=== PATIENT | female | born 1990 | race American Indian/Alaskan Native ===

== ENCOUNTER 2020-06-10 | Emergency (ER) | payer MEDICARE ==
[2020-06-10 01:14] LABS: Bilirubin,Urine NEG (Negative); Blood,Urine MOD (Negative); Color,Urine Amber (Yellow); Mucus,Urine 3+ /HPF
--- NOTE | 2020-06-10 01:14 | Emergency Department Report ---
<BOOM LOPEZ - Last Filed: 06/10/20 02:28> ED Psych HPI - General Chief Complaint: Psych Stated Complaint: SUICIDAL IDEATIONS Time Seen by Provider: 06/10/20 00:38 Source: patient Mode of arrival: Ambulatory - History of Present Illness Initial Comments: Patient is a 30-year-old female presents emergency room with complaints of suicidal ideations which she states began in February but worsened over the last couple of days. She states that "I just want to kill myself." She states that she has had multiple suicide attempts since February. She has no specific plan currently. She states that 3 people close to her have from [facility]- since February. She denies being in direct contact with them. Patient does not have any symptoms currently. She does not report any chest pain, shortness of breath, nausea, vomiting, diarrhea, fever, cough. She denies any HI. She states that she hears the voices of her loved ones the past away. She states that she last went to a facility at the end of May. She is a non-smoker. She endorses alcohol use. She denies drug use. - Related Data Previous Rx's Medication Instructions Recorded Last Taken Type Sulfamethoxazole/Trimethoprim 1 each PO BID 10 Days #20 tablet 06/10/20 Unknown Rx [Bactrim DS TAB] Allergies Allergy/AdvReac Type Severity Reaction Status Date / Time No Known Allergies Allergy Unverified 03/19/20 17:17 ED Review of Systems Comment: All other systems reviewed and negative ED Past Medical Hx - Past Medical History Previous Medical History?: Yes Hx Psychiatric Treatment: Yes (bipolar, PTSD) - Surgical History Past Surgical History?: No - Social History Smoking Status: Never Smoker Substance Use Type: None - Medications Home Medications: Home Medications Medication Instructions Recorded Confirmed Last Taken Type Sulfamethoxazole/Trimethoprim 1 each PO BID 10 Days #20 tablet 06/10/20 Unknown Rx [Bactrim DS TAB] ED Physical Exam - General Limitations: No Limitations General appearance: alert, in no apparent distress - Head Head exam: Present: atraumatic, normocephalic - Eye Eye exam: Present: normal appearance - ENT ENT exam: Present: mucous membranes moist - Respiratory Respiratory exam: Present: normal lung sounds bilaterally. Absent: respiratory distress, wheezes, rales, rhonchi, stridor, chest wall tenderness, accessory muscle use, decreased breath sounds, prolonged expiratory - Cardiovascular Cardiovascular Exam: Present: regular rate, normal rhythm, normal heart sounds. Absent: systolic murmur, diastolic murmur, rubs, gallop - Neurological Exam Neurological exam: Present: alert, oriented X3 - Psychiatric Psychiatric exam: Present: normal affect, normal mood - Skin Skin exam: Present: warm, dry, intact ED Medical Decision Making - Lab Data Result diagrams: 06/10/20 01:11 06/10/20 01:11 - Medical Decision Making Patient is a 30-year-old female presents emergency room with complaints of suicidal ideations which she states began in February but worsened over the last couple of days. She states that "I just want to kill myself." She states that she has had multiple suicide attempts since February. She has no specific plan currently. She states that 3 people close to her have from [place] [id number] since February. She denies being in direct contact with them. Patient does not have any symptoms currently. She does not report any chest pain, shortness of breath, nausea, vomiting, diarrhea, fever, cough. She denies any HI. She states that she hears the voices of her loved ones the past away. She states that she last went to a facility at the end of May. She is a non-smoker. She endorses alcohol use. She denies drug use. Vitals are normal. No abnormality on physical exam as documented in chart Stat mental health consult ordered, ED hold order placed, medical clearance orders placed And labs with mild hypokalemia, patient given K-Dur Patient signed out to Dr. Fenton, ER attending pending medical clearance ED Disposition Clinical Impression: Suicidal ideations, Hypokalemia UTI (urinary tract infection) Qualifiers: Urinary tract infection type: acute cystitis Hematuria presence: with hematuria Qualified Code(s): N30.01 - Acute cystitis with hematuria Disposition: DC/TX-65 PSY HOSP/PSY UNIT Condition: Stable Prescriptions: Sulfamethoxazole/Trimethoprim [Bactrim DS TAB] 1 each PO BID 10 Days #20 tablet Referrals: PRIMARY CARE, [Primary Care Provider] - 3-5 Days <VIVIEN FENTON III - Last Filed: 06/10/20 04:37> ED Course - Reevaluation(s) Reevaluation #1: Patient is medically cleared. I discussed all results and clinical findings with patient. I discussed plan of care with patient. Patient will remain in the ER as a ER hold. Patient's final disposition will come from our psychiatric team. 06/10/20 04:38 ED Medical Decision Making - Lab Data Result diagrams: 06/10/20 01:11 06/10/20 01:11 ED Disposition Is pt being admited?: No Does the pt Need Aspirin: No Time of Disposition: 04:38 <MARYLOU LARA - Last Filed: 06/10/20 15:47> ED Review of Systems ROS: Stated complaint: SUICIDAL IDEATIONS Other details as noted in HPI ED Course Vital Signs 06/10/20 06/10/20 00:16 10:38 Temperature 98.3 F Pulse Rate 79 83 Respiratory 18 17 Rate Blood Pressure 131/85 Blood Pressure 134/84 [Left] O2 Sat by Pulse 99 Oximetry - Reevaluation(s) Reevaluation #2: 06/10/20 12:15 1013 is recommended by psychiatry. Patient is awake, alert, walking with a steady gait. She has given consent for transfer to [facility] ED Medical Decision Making - Lab Data Result diagrams: 06/10/20 01:11 06/10/20 01:11 Critical care attestation.: If time is entered above; I have spent that time in minutes in the direct care of this critically ill patient, excluding procedure time. ED Disposition Is pt being admited?: No Does the pt Need Aspirin: No
[2020-06-10 01:19] LABS: Amphetamine Screen,Urine PRESUMPTIVE NEGATIVE; Benzodiazepines Screen,Urine PRESUMPTIVE NEGATIVE; Cannabinoid Screen,Urine PRESUMPTIVE NEGATIVE; Cocaine Screen,Urine PRESUMPTIVE NEGATIVE; Methadone Screen,Urine PRESUMPTIVE NEGATIVE; Opiate Screen,Urine PRESUMPTIVE NEGATIVE
[2020-06-10 02:10] LABS: Alanine Aminotransferase 16 units/L (7-56); Albumin 3.9 g/dL (3.9-5); BUN/Creatinine Ratio 15; Blood Urea Nitrogen 12 mg/dL (7-17); Calcium 9.2 mg/dL (8.4-10.2); Hemolysis Index 7
[2020-06-10 02:16] LABS: Basophils % (Auto) 0.2 % (0.0-1.8); Eosinophils # (Auto) 0.2 K/mm3 (0.0-0.4); Hematocrit 33.7 % (30.3-42.9); Hemoglobin 11.4 gm/dl (10.1-14.3); Lymphocytes # (Auto) 1.9 K/mm3 (1.2-5.4); Lymphocytes % (Auto) 18.6 % (13.4-35.0); Mean Corpuscular HGB Conc 34 % (30-34); Mean Corpuscular Volume 93 fl (79-97); Monocytes # (Auto) 1.3 K/mm3 (0.0-0.8); Monocytes % (Auto) 12.9 % (0.0-7.3); Platelet Count 293 K/mm3 (140-440); Red Cell Distribution Width 13.9 % (13.2-15.2)
[2020-06-10] MEDS ORDERED: POTASSIUM CHLORIDE ER 20 MEQ TAB PO ONE (02:16)
[2020-06-10 10:39] VITALS: BP 134/84
== END 2020-06-10 17:16 ==
LOC: ED
DX: E87.6 Hypokalemia (principal); N39.0 Urinary tract infection, site not specified; R45.851 Suicidal ideations; F31.9 Bipolar disorder, unspecified; Z79.899 Other long term (current) drug therapy
CPT/HCPCS: 36415; 80053; 80307; 80320; 81001; 82550; 83735; 84703; 85025; G0480

== ENCOUNTER 2021-08-15 14:40 | Emergency (ER) | payer MEDICARE ==
[2021-08-15] MEDS ORDERED: ALPRAZolam 1 MG TAB PO ONE (17:06)
[2021-08-15] MEDS ORDERED: HALOPERIDOL LACTATE 5 MG/1 ML INJ IM PRN (17:06)
[2021-08-15] MEDS ORDERED: LORazepam 2 MG/ML VIAL IM PRN (17:06)
--- NOTE | 2021-08-15 17:06 | Emergency Department Report ---
ED General Adult HPI - General Chief complaint: Psych Stated complaint: SUCIDIAL PUI?: No Time Seen by Provider: 08/15/21 16:09 Source: patient, RN notes reviewed, old records reviewed Mode of arrival: Ambulatory Limitations: No Limitations - History of Present Illness Initial comments: The patient was evaluated in the emergency department for symptoms described in the history of present illness. He/she was evaluated in the context of the global COVID-19 pandemic, which necessitated consideration that the patient might be at risk for infection with the virus that causes COVID-19. Institutional protocols and algorithms that pertain to the evaluation of patients at risk for COVID-19 are in a state of rapid change based on information released by regulatory bodies including the CDC and federal and state organizations. These policies and algorithms were followed during the patient's care in the emergency department. Please note that these policies, procedures and recommendations changed on a rapid basis. During the history and physical examination, I am chaperoned by nurse Ena Nance The patient is a 31-year-old female, with a history of obesity, and psychiatric disease. The patient presents to the ER today with a complaint of suicidality. The patient reports that a significant other / last month, and she has been seeing hallucinations, hearing their voice, and she states that she wants to overdose and kill herself. She reports that she recently lifted up a knife, and considered cutting herself. However, she states that she has not cut herself. The patient denies headache, neck pain, abdominal pain, intentional overdose, urinary symptoms, and Covid symptoms. The patient has not received her Covid vaccination. On review of systems, the patient endorses reproducible central chest wall pain, present for a few hours, which does not radiate to the back, arms or neck. The patient denies vomiting, diaphoresis, leg pain, leg swelling, travel, surgery, immobilization, DVT and pulmonary embolism risk factors. -: days(s) Severity scale (0 -10): 0 Consistency: constant Improves with: none Worsens with: none - Related Data Home Medications Medication Instructions Recorded Confirmed Last Taken Depakote Dr PO DAILY 08/15/21 Unknown Allergies Allergy/AdvReac Type Severity Reaction Status Date / Time Fish Containing Products Allergy Hives Verified 08/15/21 15:49 ED Review of Systems ROS: Stated complaint: SUCIDIAL Other details as noted in HPI Constitutional: denies: fever Eyes: denies: eye discharge ENT: denies: epistaxis Respiratory: denies: cough Cardiovascular: other (Chest wall pain) Gastrointestinal: denies: abdominal pain Genitourinary: denies: dysuria Neurological: denies: headache Psychiatric: anxiety, depression, auditory hallucinations, suicidal thoughts. denies: homicidal thoughts ED Past Medical Hx - Past Medical History Previous Medical History?: No Hx Psychiatric Treatment: Yes (bipolar, PTSD) - Surgical History Past Surgical History?: No - Social History Smoking Status: Never Smoker Substance Use Type: None - Medications Home Medications: Home Medications Medication Instructions Recorded Confirmed Last Taken Type Depakote Dr PO DAILY 08/15/21 Unknown History ED Physical Exam - General Limitations: No Limitations General appearance: alert, in no apparent distress, obese - Head Head exam: Present: atraumatic, normocephalic - Eye Eye exam: Present: normal appearance, EOMI. Absent: nystagmus - ENT ENT exam: Present: normal exam, normal orophraynx, mucous membranes moist, normal external ear exam - Neck Neck exam: Present: normal inspection, full ROM. Absent: tenderness, meningism us - Respiratory Respiratory exam: Present: normal lung sounds bilaterally, chest wall tenderness. Absent: respiratory distress, wheezes, rales, rhonchi, stridor - Cardiovascular Cardiovascular Exam: Present: regular rate, normal rhythm, normal heart sounds. Absent: bradycardia, tachycardia, irregular rhythm, systolic murmur, diastolic murmur, rubs, gallop - GI/Abdominal GI/Abdominal exam: Present: soft. Absent: distended, tenderness, guarding, rebound, rigid, pulsatile mass - Extremities Exam Extremities exam: Present: normal inspection, full ROM, other (2+ pulses noted in the bilateral upper and lower extremities. There is no palpable cord. negative Homans sign. Muscular compartments are soft. The pelvis is stable.). Absent: pedal edema, calf tenderness - Back Exam Back exam: Present: normal inspection, full ROM. Absent: tenderness, CVA tenderness (R), CVA tenderness (L), paraspinal tenderness, vertebral tenderness - Neurological Exam Neurological exam: Present: alert, oriented X3, other (No facial droop. Tongue midline. Extraocular movements intact bilaterally. Facial sensation intact to light touch in V1, V2, V3 distribution bilaterally. 5 and a 5 strength in 4 extremities. Sensation intact to light touch in 4 extremities.). Absent: motor sensory deficit - Psychiatric Psychiatric exam: Present: suicidal ideation - Skin Skin exam: Present: warm, dry, intact, normal color. Absent: rash ED Course Vital Signs 08/15/21 08/15/21 08/15/21 15:12 15:41 16:29 Temperature 98.7 F 98.6 F Pulse Rate 100 H 80 Respiratory 16 20 Rate Blood Pressure 143/83 146/92 [Right] O2 Sat by Pulse 99 98 98 Oximetry 08/15/21 19:59 Temperature 98.3 F Pulse Rate 98 H Respiratory 18 Rate Blood Pressure 123/80 [Right] O2 Sat by Pulse 99 Oximetry - Reevaluation(s) Reevaluation #1: 08/15/21 17:58 Differential diagnosis, including not limited to: Obesity, depression, dysthymia, suicidality, costochondritis, medical clearance for psychiatric placement Assessment and plan: 81-year-old female who endorses hallucinations, suici dality, wants to harm herself, has considered taking a knife to kill herself, with attempts for self-harm in the past. She meets criteria for 1013 hold or involuntary hold secondary to the aforementioned. Tachycardia resolved, she is not currently tachycardic, tachypneic or hypoxic, she denies DVT and pulmonary embolism risk factors, and she is low risk by Wells criteria for pulmonary embolism. She has reproducible chest wall pain, low risk for major adverse cardiac event as per heart score. Chest x-ray pending, remainder of laboratory studies pending, holding orders initiated, explained significance of 1013 to patient. 08/15/21 19:11 Liver panel is unremarkable. Chest x-ray, abdominal x-ray unremarkable. Specifically, no evidence of iron tablet ingestion seen radiographically. Pa tient resting comfortably on stretcher, in no acute distress. Laboratory studies unremarkable, except for valproic acid level of 122. We will order repeat level, and follow-up. 08/15/21 21:25 Resting comfortably on stretcher. No acute distress. X-rays unremarkable. Vital signs unremarkable. 08/16/21 00:43 Valproic acid level appropriately down trended. At this point in time, this patient does not appear to have an immediate medical contraindication to psychiatric admission, evaluation, consultation and placement. ED Medical Decision Making - Lab Data Result diagrams: 08/15/21 17:09 08/15/21 17:09 Vital Signs 08/15/21 08/15/21 08/15/21 15:12 15:41 16:29 Temperature 98.7 F 98.6 F Pulse Rate 100 H 80 Respiratory 16 20 Rate Blood Pressure 143/83 146/92 [Right] O2 Sat by Pulse 99 98 98 Oximetry Lab Results 08/15/21 08/15/21 08/15/21 Range/Units 17:09 17:09 17:09 WBC 9.1 (4.5-11.0) K/mm3 RBC 4.04 (3.65-5.03) M/mm3 Hgb 13.0 (10.1-14.3) gm/dl Hct 38.2 (30.3-42.9) % MCV 95 (79-97) fl MCH 32 (28-32) pg MCHC 34 (30-34) % RDW 15.2 (13.2-15.2) % Plt Count 299 (140-440) K/mm3 Lymph % (Auto) 19.9 (13.4-35.0) % [place] % (Auto) 6.9 (0.0-7.3) % Eos % (Auto) 1.9 (0.0-4.3) % Baso % (Auto) 0.3 (0.0-1.8) % Lymph # (Auto) 1.8 (1.2-5.4) K/mm3 [place] # (Auto) 0.6 (0.0-0.8) K/mm3 Eos # (Auto) 0.2 (0.0-0.4) K/mm3 Baso # (Auto) 0.0 (0.0-0.1) K/mm3 Seg Neutrophils % 71.0 H (40.0-70.0) % Seg Neutrophils # 6.4 (1.8-7.7) K/mm3 PT (12.2-14.9) Sec. INR (0.87-1.13) Sodium 135 L (137-145) mmol/L Potassium 3.8 (3.6-5.0) mmol/L Chloride 101.4 (98-107) mmol/L Carbon Dioxide 20 L (22-30) mmol/L Anion Gap 17 mmol/L BUN 15 (7-17) mg/dL Creatinine 0.8 (0.6-1.2) mg/dL Estimated GFR > 60 ml/min BUN/Creatinine Ratio 19 % Glucose 100 (65-100) mg/dL Calcium 9.1 (8.4-10.2) mg/dL Troponin T (0.00-0.029) ng/mL HCG, Qual (Negative) Plasma/Serum Alcohol < 0.01 (0-0.07) % 08/15/21 08/15/21 08/15/21 Range/Units 17:09 17:09 17:09 WBC (4.5-11.0) K/mm3 RBC (3.65-5.03) M/mm3 Hgb (10.1-14.3) gm/dl Hct (30.3-42.9) % MCV (79-97) fl MCH (28-32) pg MCHC (30-34) % RDW (13.2-15.2) % Plt Count (140-440) K/mm3 Lymph % (Auto) (13.4-35.0) % [place] % (Auto) (0.0-7.3) % Eos % (Auto) (0.0-4.3) % Baso % (Auto) (0.0-1.8) % Lymph # (Auto) (1.2-5.4) K/mm3 [place] # (Auto) (0.0-0.8) K/mm3 Eos # (Auto) (0.0-0.4) K/mm3 Baso # (Auto) (0.0-0.1) K/mm3 Seg Neutrophils % (40.0-70.0) % Seg Neutrophils # (1.8-7.7) K/mm3 PT 13.8 (12.2-14.9) Sec. INR 1.00 (0.87-1.13) Sodium (137-145) mmol/L Potassium (3.6-5.0) mmol/L Chloride (98-107) mmol/L Carbon Dioxide (22-30) mmol/L Anion Gap mmol/L BUN (7-17) mg/dL Creatinine (0.6-1.2) mg/dL Estimated GFR ml/min BUN/Creatinine Ratio % Glucose (65-100) mg/dL Calcium (8.4-10.2) mg/dL Troponin T < 0.010 (0.00-0.029) ng/mL HCG, Qual Negative (Negative) Plasma/Serum Alcohol (0-0.07) % - EKG Data -: EKG Interpreted by Me EKG shows normal: sinus rhythm Rate: tachycardia - EKG Data When compared to previous EKG there are: previous EKG unavailable 08/15/21 17:58 The EKG is interpreted at 17: 18 Sinus rhythm, rate 100 bpm, normal axis, normal intervals, abnormal EKG, not a STEMI, PVC noted, no prior for comparison. - Radiology Data Radiology results: pending, report reviewed, image reviewed CHEST 2 VIEWS INDICATION / CLINICAL INFORMATION: Medical Clearance Psych chest wall pain. FINDINGS: SUPPORT DEVICES: None. HEART / MEDIASTINUM: No significant abnormality. LUNGS / PLEURA: No significant pulmonary or pleural abnormality. No pneumothorax. ADDITIONAL FINDINGS: No significant additional findings. IMPRESSION: 1. No acute findings. Signer Name: Bhanu Salgado MD Signed: 08/15/2021 5:09 PM Workstation Name: [id number] ABDOMEN AP SUPINE 1813 INDICATION: chest wall pain,. medical clearance COMPARISON: None available. FINDINGS: Moderate amount of stool is seen in the right colon suggesting constipation. No evidence of bowel obstruction is seen. No obvious urinary tract calculi are noted. Signer Name: Sanjay Vargas MD Signed: 08/15/2021 5:27 PM Workstation Name: [id number] Critical care attestation.: If time is entered above; I have spent that time in minutes in the direct care of this critically ill patient, excluding procedure time. ED Disposition Clinical Impression: Medical clearance for psychiatric admission, Chest wall pain, BMI 45.0-49.9, adult Disposition: [facility] Is pt being admited?: No Does the pt Need Aspirin: No Condition: Good Instructions: Nonspecific Chest Pain, Adult Referrals: PRIMARY CARE, [Primary Care Provider] - 3-5 Days Heart Score - HEART Score History: Slightly suspicious EKG: Non-specific Age: < 45 Risk factors: 1-2 risk factors Troponin: < normal limit HEART Score: 2 - EKG Read Time Time EKG Completed: 17:18 EKG Read Time: 17:18 - Critical Actions Critical Actions: 0-3 pts:0.9-1.7%risk of adverse cardiac event.Candidate for discharge
[2021-08-15 17:31] LABS: Basophils % (Auto) 0.3 % (0.0-1.8); Eosinophils # (Auto) 0.2 K/mm3 (0.0-0.4); Eosinophils % (Auto) 1.9 % (0.0-4.3); Hematocrit 38.2 % (30.3-42.9); Lymphocytes # (Auto) 1.8 K/mm3 (1.2-5.4); Lymphocytes % (Auto) 19.9 % (13.4-35.0); Mean Corpuscular HGB Conc 34 % (30-34); Mean Corpuscular Volume 95 fl (79-97); Monocytes # (Auto) 0.6 K/mm3 (0.0-0.8); Monocytes % (Auto) 6.9 % (0.0-7.3); Platelet Count 299 K/mm3 (140-440); Red Blood Count 4.04 M/mm3 (3.65-5.03); Red Cell Distribution Width 15.2 % (13.2-15.2)
[2021-08-15 17:45] LABS: BUN/Creatinine Ratio 19; Blood Urea Nitrogen 15 mg/dL (7-17); Calcium 9.1 mg/dL (8.4-10.2); Hemolysis Index 16
--- NOTE | 2021-08-15 18:13 | XRay Report ---
CHEST 2 VIEWS INDICATION / CLINICAL INFORMATION: Medical Clearance Psych chest wall pain. FINDINGS: SUPPORT DEVICES: None. HEART / MEDIASTINUM: No significant abnormality. LUNGS / PLEURA: No significant pulmonary or pleural abnormality. No pneumothorax. ADDITIONAL FINDINGS: No significant additional findings. IMPRESSION: 1. No acute findings. Signer Name: Bhanu Salgado MD Signed: 08/15/2021 6:09 PM Workstation Name: [id number]
[2021-08-15 18:21] LABS: Alanine Aminotransferase 6 units/L (7-56); Albumin 3.7 g/dL (3.9-5)
[2021-08-15 18:21] LABS: Amphetamine Screen,Urine Negative; Benzodiazepines Screen,Urine Negative; Cannabinoid Screen,Urine Negative; Cocaine Screen,Urine Negative; Methadone Screen,Urine Negative; Opiate Screen,Urine Negative
[2021-08-15 18:22] LABS: Bilirubin,Direct < 0.2 mg/dL (0-0.2)
--- NOTE | 2021-08-15 18:32 | XRay Report ---
ABDOMEN AP SUPINE 1812 INDICATION: chest wall pain,. medical clearance COMPARISON: None available. FINDINGS: Moderate amount of stool is seen in the right colon suggesting constipation. No evidence of bowel obstruction is seen. No obvious urinary tract calculi are noted. Signer Name: Sanjay Vargas MD Signed: 08/15/2021 6:27 PM Workstation Name: [id number]
[2021-08-15 19:47] LABS: Bilirubin,Urine NEG (Negative); Blood,Urine SM (Negative); Color,Urine Yellow (Yellow); Mucus,Urine FEW /HPF; Protein,Urine <15 mg/dL mg/dL (Negative); Urobilinogen,Urine < 2.0 mg/dL (<2.0)
[2021-08-16 07:58] VITALS: BP 114/70
--- NOTE | 2021-08-16 10:39 | Electrocardiograph Report ---
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
== END 2021-08-16 10:13 ==
LOC: EEVIPCON 14:40 → ED 14:40
DX: R07.89 Other chest pain (principal); Z68.42 Body mass index [BMI] 45.0-49.9, adult; Z13.30 Encounter for screening examination for mental health and behavioral disorders, unspecified; Z20.822 Contact with and (suspected) exposure to COVID-19; F31.9 Bipolar disorder, unspecified; F43.10 Post-traumatic stress disorder, unspecified; Z91.013 Allergy to seafood
CPT/HCPCS: 36415; 71046; 74018; 80048; 80076; 80164; 80307; 81001; 84443; 84484; 84703; 85025; 85610; 93005; 99285; U0003; 80320; G0480